=== PATIENT | female | born 1970 | race African-American/Black ===

== ENCOUNTER 2016-11-03 10:23 | Observation (INO) | payer OTHER ==
[~2016-11-03] VITALS: Ht 172.7 cm; Wt 71.0 kg
[2016-11-03] VITALS (9 sets, daily range): BP systolic 121–161; BP diastolic 85–91; PULSE 68–85; RESP 18–20; TEMP 97.9–99.2; O2SAT 96–100
[~2016-11-03 10:23] MED LIST: CETI10 PO; EXCETAB2; EXTR500C OR; IRON325T2 OR; [UNRECOGNIZED DRUG - CODE]
[2016-11-03] MEDS ORDERED: TAMO10TA6 PO (10:37)
[2016-11-03] MEDS ORDERED: HYDR12.56 PO (10:37)
[2016-11-03] MEDS ORDERED: GLIP5TAB8 PO (10:37)
--- NOTE | 2016-11-03 10:57 | PD ---
HPI Chief Complaint: Chest Pain Time Seen by Provider: 10:46 Travel History International Travel<30 days: No Contact w/Intl Traveler<30days: No Traveled to known affect area: No History of Present Illness HPI This 46-year-old female is complaining of pressure behind her sternum. She says she's developed these symptoms this morning while she was watching TV. He stood up but after bed and the pain seems to have subsided somewhat. She had a similar symptom about a year ago. She has no history of heart disease. She does not smoke. She has a history of hypertension and diabetes. Her mother of a stroke at the age of 52. She has had breast cancer twice and has had radiation and tamoxifen treatments. She was not short of breath. There was no radiation of the pain. There is no diaphoresis. She took 2 aspirin at home PFSH Past Medical History Cancer: Yes (RIGHT BREAST-2001 CHEMO & RADIATION [place] ) Cardiovascular Problems: Yes Diabetes: Yes Patient Takes Glucophage: No Endocrine: No Genitourinary: No Hepatitis: No Hiatal Hernia: No Immune Disorder: No Musculoskeletal: No Neurologic: No Psychiatric: No Reproductive: No Respiratory: No Thyroid Disease: No Influenza Vaccination: No ?: Not LMP: TERRY Past Surgical History Abdominal Surgery: No AICD: No Body Medical Devices: ? CLIP LEFT BREAST Cardiac Surgery: No Ear Surgery: No Endocrine Surgery: No Eye Surgery: No Genitourinary Surgery: No Gynecologic Surgery: No Joint Replacement: No Oral Surgery: No Pacemaker: No Thoracic Surgery: Yes (LUMPECTOMY RIGHT BREAST 2002; JORGE ALBERTO BREAST BIOPSIES; ) Other Surgery: Yes (RIGHT LUMPECTOMY--CANCER) Social History Alcohol Use: No Tobacco Use: No Substance Use: No Allergies-Medications (Allergen,Severity, Reaction): Coded Allergies: erythromycin base (Unverified Allergy, Severe, 11/03/16) HIVES hydrocodone (Unverified Allergy, Unknown, HIVES, WHELPS, ITCHING, 11/03/16) Uncoded Allergies: [id number] (Allergy, Unknown, 11/02/02) Reported Meds & Prescriptions Reported Meds & Active Scripts Active Reported Tamoxifen (Tamoxifen Citrate) 10 Mg Tab 10 Mg PO DAILY Glipizide 5 Mg Tab 5 Mg PO DAILY Take 30 minutes before a meal Hydrochlorothiazide 12.5 Mg Tab 12.5 Mg PO DAILY Review of Systems General / Constitutional: No: Fever, Chills Eyes: No: Diploplia, Blurred Vision HENT: No: Headaches, Vertigo Cardiovascular: Positive: Chest Pain or Discomfort, No: Palpitations Respiratory: No: Cough, Shortness of Breath Gastrointestinal: No: Vomiting, Diarrhea Genitourinary: No: Urgency, Frequency Musculoskeletal: No: Myalgias Skin: No Rash, No Itching Neurologic: No: Weakness Endocrine: No: Cold Intolerance Hematologic/Lymphatic: No: Easy Bruising Physical Exam Narrative GENERAL: Female SKIN: Focused skin assessment warm/dry. HEAD: Atraumatic. Normocephalic. EYES: Pupils equal and round. No scleral icterus. No injection or drainage. ENT: No nasal bleeding or discharge. Mucous membranes pink and moist. NECK: Trachea midline. No JVD. CARDIOVASCULAR: Regular rate and rhythm. No murmur appreciated. RESPIRATORY: No accessory muscle use. Clear to auscultation. Breath sounds equal bilaterally. GASTROINTESTINAL: Abdomen soft, non-tender, nondistended. Hepatic and splenic margins not palpable. MUSCULOSKELETAL: No obvious deformities. No clubbing. No cyanosis. No edema. NEUROLOGICAL: Awake and alert. No obvious cranial nerve deficits. Motor grossly within normal limits. Normal speech. PSYCHIATRIC: Appropriate mood and affect; insight and judgment normal. Data Data Last Documented VS Vital Signs Date Time Temp Pulse Resp B/P (MAP) Pulse Ox O2 Delivery O2 Flow Rate FiO2 11/03/16 11:00 99 Room Air 11/03/16 10:41 78 11/03/16 10:30 97.9 18 161/90 (113) Orders Orders Electrocardiogram (11/03/16 10:53) Basic Metabolic Panel (Bmp) (11/03/16 10:53) Complete Blood Count With Diff (11/03/16 10:53) Magnesium (Mg) (11/03/16 10:53) Prothrombin Time / Inr (Pt) (11/03/16 10:53) Act Partial Throm Time (Ptt) (11/03/16 10:53) Troponin I (11/03/16 10:53) Chest, Single Ap (11/03/16 10:53) Ecg Monitoring (11/03/16 10:53) Iv Access Insert/Monitor (11/03/16 10:53) Oximetry (11/03/16 10:53) Oxygen Administration (11/03/16 10:53) Sodium Chloride 0.9% Flush (Ns Flush) (11/03/16 11:00) Labs Laboratory Tests Test 11/03/16 11:11 11/03/16 11:35 White Blood Count 6.2 TH/MM3 Red Blood Count 5.18 MIL/MM3 Hemoglobin 12.9 GM/DL Hematocrit 40.5 % Mean Corpuscular Volume 78.3 FL Mean Corpuscular Hemoglobin 25.0 PG Mean Corpuscular Hemoglobin Concent 31.9 % Red Cell Distribution Width 13.2 % Platelet Count 292 TH/MM3 Mean Platelet Volume 7.9 FL Neutrophils (%) (Auto) 60.6 % Lymphocytes (%) (Auto) 27.9 % Monocytes (%) (Auto) 8.1 % Eosinophils (%) (Auto) 3.0 % Basophils (%) (Auto) 0.4 % Neutrophils # (Auto) 3.8 TH/MM3 Lymphocytes # (Auto) 1.7 TH/MM3 Monocytes # (Auto) 0.5 TH/MM3 Eosinophils # (Auto) 0.2 TH/MM3 Basophils # (Auto) 0.0 TH/MM3 CBC Comment DIFF FINAL Differential Comment Prothrombin Time 10.4 SEC Prothromb Time International Ratio 0.9 RATIO Activated Partial Thromboplast Time 25.4 SEC Blood Urea Nitrogen 19 MG/DL Creatinine 0.88 MG/DL Random Glucose 97 MG/DL Calcium Level 8.9 MG/DL Magnesium Level 2.3 MG/DL Sodium Level 140 MEQ/L Potassium Level 3.4 MEQ/L Chloride Level 103 MEQ/L Carbon Dioxide Level 29.0 MEQ/L Anion Gap 8 MEQ/L Estimat Glomerular Filtration Rate 83 ML/MIN Troponin I LESS THAN 0.02 NG/ML [facility] Medical Decision Making Medical Screen Exam Complete: Yes Emergency Medical Condition: Yes Medical Record Reviewed: Yes Differential Diagnosis Differential includes coronary artery disease, atypical chest pain, GI Narrative Course EKG shows sinus rhythm. Chest x-ray is negative. Initial troponin is normal. I recommended to the patient that she be admitted to the chest pain center for further evaluation and she is agreeable Diagnosis Primary Impression: Chest pain Stefano Mijares MD Nov 03, 2016 10:57
[2016-11-03] MEDS ORDERED: SODIUM CHLORIDE 0.9% FLUSH 10 ML FLUSH IVF PRN (11:00)
[2016-11-03 11:14] LABS: AUTOMATED NEUTROPHIL # 3.8 TH/MM3 (1.8-7.7); BASOPHIL % 0.4 % (0.0-2.0); EOSINOPHIL # 0.2 TH/MM3 (0-0.4); HEMATOCRIT 40.5 % (35.0-46.0); LYMPH % 27.9 % (9.0-44.0); LYMPHOCYTE # 1.7 TH/MM3 (1.0-4.8); MEAN CELL VOLUME 78.3 FL (80.0-100.0); MEAN CORPUSCULAR HGB CONC 31.9 % (32.0-36.0); MONO % 8.1 % (0.0-8.0); NEUT % 60.6 % (16.0-70.0); PLATELET COUNT 292 TH/MM3 (150-450); RED BLOOD COUNT 5.18 MIL/MM3 (4.00-5.30); RED CELL DISTRIBUTION WIDTH 13.2 % (11.6-17.2); WHITE BLOOD COUNT 6.2 TH/MM3 (4.0-11.0)
--- NOTE | 2016-11-03 11:15 | RADRPT ---
EXAM DATE/TIME: 11/03/2016 11:05 [place] COMPARISON: CHEST SINGLE AP, April 07, 2013, 13:06. INDICATIONS : Onset of chest pain today MEDICAL HISTORY : Carcinoma, breast. Diabetes mellitus type II. SURGICAL HISTORY : Mastectomy, bilateral. ENCOUNTER: Initial ACUITY: 1 day PAIN SCORE: 2/10 LOCATION: Bilateral chest FINDINGS: Portable AP view of the chest demonstrates a normal-sized cardiac silhouette. No effusion, consolidat ion, or pneumothorax is visualized. The bones and soft tissues demonstrate no acute abnormality. [place] st implants are present. Clips overlie the right axilla. CONCLUSION: No acute cardiopulmonary abnormality is identified. Harley Murray MD on November 03, 2016 at 11:12 Board Certified Radiologist. This report was verified electronically.
[2016-11-03 11:16] LABS: HEMO FLAGS DIFF FINAL
[2016-11-03 11:32] LABS: APTT (PATIENT) 25.4 SEC (24.3-30.1); INTERNATIONAL NORMALIZED RATIO 0.9 RATIO; PROTHROMBIN TIME - PATIENT 10.4 SEC (9.8-11.6)
[2016-11-03 11:51] LABS: CHLORIDE 103 MEQ/L (98-107); POTASSIUM 3.4 MEQ/L (3.5-5.1); SODIUM (NA) 140 MEQ/L (136-145)
[2016-11-03 11:54] LABS: ANION GAP 8 MEQ/L (5-15)
[2016-11-03 11:55] LABS: BLOOD UREA NITROGEN 19 MG/DL (7-18); MAGNESIUM 2.3 MG/DL (1.5-2.5)
[2016-11-03 11:58] LABS: GLOMERULAR FILTRATION RATE 83 ML/MIN (>89)
[2016-11-03] MEDS ORDERED: SODIUM CHLORIDE 0.9% FLUSH 10 ML FLUSH IV FLUSH PRN (12:45)
[2016-11-03] MEDS ORDERED: NALOXONE HCL 0.4 MG/ML AMP IV PRN (12:45)
[2016-11-03] MEDS ORDERED: ENOXAPARIN SODIUM 40 MG/0.4 ML SYRINGE SQ SCH (13:00)
[2016-11-03] MEDS ORDERED: SENNOSIDES 8.6 MG TAB PO PRN (13:00)
[2016-11-03] MEDS ORDERED: ONDANSETRON HCL 4 MG/2 ML VIAL IVP PRN (13:00)
[2016-11-03] MEDS ORDERED: LACTULOSE SYRUP 20 GM/30 ML CUP PO PRN (13:00)
--- NOTE | 2016-11-03 14:09 | HHI.HP ---
[facility] Service [facility] Primary Care Physician Fredi Ramirez MD Admission Diagnosis CHEST PAIN Diagnoses: Travel History International Travel<30 Days: No Contact w/Intl Traveler <30 Da: No Traveled to Known Affected Are: No History of Present Illness Mrs. Dunne is a 46-year-old female. She has a past medical history of breast cancer. She came into the emergency department today secondary to chest pain this morning. Chest pain was central in her chest and tight and heavy and had a duration of approximately one hour. She's had an episode like this before about 2 years ago. When seen in the ER her pain has subsided. Her first case of breast cancer was at age 32 at which time she had lumpectomy and her second case of breast cancer was at age 42 for which she had bilateral mastectomy and reconstructive surgery. Radiation chemotherapy has been provided to her in the past. Baseline medical conditions are hypertension, diabetes mellitus type 2, in the past history of breast cancer. She has no other surgeries other than the surgeries related to her breast cancer. No other complaints. No nausea. Review of Systems Constitutional: DENIES: Fever, Chills, Change in appetite Endocrine: DENIES: Heat/cold intolerance Eyes: DENIES: Blurred vision, Eye pain Respiratory: DENIES: Cough, Wheezing, Sputum production Cardiovascular: COMPLAINS OF: Chest pain, DENIES: Palpitations, Syncope Gastrointestinal: DENIES: Abdominal pain, Black stools, Bloody stools Musculoskeletal: DENIES: Joint pain, Muscle aches, Stiffness Integumentary: DENIES: Abnormal pigmentation Hematologic/lymphatic: DENIES: Bruising Immunologic/allergic: DENIES: Eczema Neurologic: DENIES: Abnormal gait Psychiatric: DENIES: Anxiety, Confusion, Mood changes Past Family Social History Past Medical History History of breast cancer Hypertension Diabetes mellitus type 2 Past Surgical History Lumpectomy of breast Bilateral mastectomy Breast reconstruction surgery Reported Medications Reported Meds & Active Scripts Active Reported Tamoxifen (Tamoxifen Citrate) 10 Mg Tab 10 Mg PO DAILY Glipizide 5 Mg Tab 5 Mg PO DAILY Take 30 minutes before a meal Hydrochlorothiazide 12.5 Mg Tab 12.5 Mg PO DAILY Allergies: Coded Allergies: erythromycin base (Unverified Allergy, Severe, 11/03/16) HIVES hydrocodone (Unverified Allergy, Unknown, HIVES, WHELPS, ITCHING, 11/03/16) Uncoded Allergies: [id number] (Allergy, Unknown, 11/02/02) Family History Diabetes mellitus and hypertension in father Hypertension mother Social History No smoking, alcohol use, or drug abuse Physical Exam Vital Signs Vital Signs Date Time Temp Pulse Resp B/P (MAP) Pulse Ox O2 Delivery O2 Flow Rate FiO2 11/03/16 12:30 73 18 147/85 (105) 98 11/03/16 11:55 74 20 135/90 (105) 96 11/03/16 11:30 78 20 142/90 (107) 100 11/03/16 11:10 70 18 129/90 (103) 98 11/03/16 11:00 99 Room Air 11/03/16 11:00 99 Room Air 11/03/16 10:41 78 99 Room Air 11/03/16 10:30 97.9 85 18 161/90 (113) 99 Physical Exam GENERAL: NAD, A&Ox3 HEAD: Normocephalic. NECK: Supple, trachea midline. No lymphadenopathy. EYES: No scleral icterus. No injection or drainage. CARDIOVASCULAR: Regular rate and rhythm without murmurs, gallops, or rubs. RESPIRATORY: Breath sounds equal bilaterally. No accessory muscle use. GASTROINTESTINAL: Abdomen soft, non-tender, nondistended. MUSCULOSKELETAL: No cyanosis, or edema. SKIN: Warm and dry. NEURO: No focal neurological deficitis. Laboratory Laboratory Tests Test 11/03/16 11:11 11/03/16 11:35 White Blood Count 6.2 Red Blood Count 5.18 Hemoglobin 12.9 Hematocrit 40.5 Mean Corpuscular Volume 78.3 Mean Corpuscular Hemoglobin 25.0 Mean Corpuscular Hemoglobin Concent 31.9 Red Cell Distribution Width 13.2 Platelet Count 292 Mean Platelet Volume 7.9 Neutrophils (%) (Auto) 60.6 Lymphocytes (%) (Auto) 27.9 Monocytes (%) (Auto) 8.1 Eosinophils (%) (Auto) 3.0 Basophils (%) (Auto) 0.4 Neutrophils # (Auto) 3.8 Lymphocytes # (Auto) 1.7 Monocytes # (Auto) 0.5 Eosinophils # (Auto) 0.2 Basophils # (Auto) 0.0 CBC Comment DIFF FINAL Differential Comment Prothrombin Time 10.4 Prothromb Time International Ratio 0.9 Activated Partial Thromboplast Time 25.4 Blood Urea Nitrogen 19 Creatinine 0.88 Random Glucose 97 Calcium Level 8.9 Magnesium Level 2.3 Sodium Level 140 Potassium Level 3.4 Chloride Level 103 Carbon Dioxide Level 29.0 Anion Gap 8 Estimat Glomerular Filtration Rate 83 Troponin I LESS THAN 0.02 Result Diagram: 11/03/16 1111 11/03/16 1135 Caprini VTE Risk Assessment Caprini VTE Risk Assessment: No/Low Risk (score <= 1) Caprini Risk Assessment Model Point Value = 1 Point Value = 2 Point Value = 3 Point Value = 5 Age 41-60 Minor surgery BMI > 25 kg/m2 Swollen legs Varicose veins or History of unexplained or recurrent spontaneous Oral contraceptives or hormone replacement Sepsis (< 1 month) Serious lung disease, including pneumonia (< 1 month) Abnormal pulmonary function Acute myocardial infarction Congestive heart failure (< 1 month) History of inflammatory bowel disease Medical patient at bed rest Age 61-74 Arthroscopic surgery Major open surgery (> 45 min) Laparoscopic surgery (> 45 min) Malignancy Confined to bed (> 72 hours) Immobilizing plaster cast Central venous access Age >= 75 History of VTE Family history of VTE Factor V Leiden Prothrombin [id number] Lupus anticoagulant Anticardiolipin antibodies Elevated serum homocysteine Heparin-induced thrombocytopenia Other congenital or acquired thrombophilia Stroke (< 1 month) Elective arthroplasty Hip, pelvis, or leg fracture Acute spinal cord injury (< 1 month) Prophylaxis Regimen Total Risk Factor Score Risk Level Prophylaxis Regimen 0-1 Low Early ambulation 2 Moderate Order ONE of the following: *Sequential Compression Device (SCD) *Heparin 5000 units SQ BID 3-4 Higher Order ONE of the following medications: *Heparin 5000 units SQ TID *Enoxaparin/Lovenox 40 mg SQ daily (WT < 150 kg, CrCl > 30 mL/min) *Enoxaparin/Lovenox 30 mg SQ daily (WT < 150 kg, CrCl > 10-29 mL/min) *Enoxaparin/Lovenox 30 mg SQ BID (WT < 150 kg, CrCl > 30 mL/min) AND/OR *Sequential Compression Device (SCD) 5 or more Highest Order ONE of the following medications: *Heparin 5000 units SQ TID (Preferred with Epidurals) *Enoxaparin/Lovenox 40 mg SQ daily (WT < 150 kg, CrCl > 30 mL/min) *Enoxaparin/Lovenox 30 mg SQ daily (WT < 150 kg, CrCl > 10-29 mL/min) *Enoxaparin/Lovenox 30 mg SQ BID (WT < 150 kg, CrCl > 30 mL/min) AND *Sequential Compression Device (SCD) Assessment and Plan Problem List: (1) Chest pain ICD Code: R07.9 - Chest pain, unspecified Status: Acute Assessment and Plan Assessment and plan 46-year-old female admitted secondary to chest pain Chest pain Evaluate for ACS Follow cardiac enzymes Aspirin daily When necessary oxygen When necessary morphine for pain. When necessary nitroglycerin Follow on telemetry Diabetes mellitus type 2 Follow blood sugars Insulin sliding scale Diabetic diet Hypertension Continue baseline treatment Follow blood pressures No plan to change baseline treatment DVT Prophylaxis Pablo Quinones MD Nov 03, 2016 14:09
[2016-11-03] MEDS ORDERED: NITROGLYCERIN 0.4 MG SL 25 TABS/BTL SL PRN (15:00)
[2016-11-03 17:37] LABS: CKMB 4.2 NG/ML (0.5-3.6)
[2016-11-03 19:19] LABS: CREATINE KINASE 2912 U/L (26-192)
[2016-11-03 19:53] LABS: CKMB 3.6 NG/ML (0.5-3.6)
[2016-11-03] MEDS ORDERED: ATORVASTATIN 10 MG TAB PO SCH (21:00)
[2016-11-03] MEDS ORDERED: POTASSIUM CHLORIDE 20 MEQ CONTROLLED RELEASE TAB PO ONE (21:15)
[2016-11-03] MEDS: SODIUM CHLOR 0.9% 1000 ML INJ 1,000 ML IV SCH (21:46)
[2016-11-03] MEDS: SODIUM CHLORIDE 0.9% FLUSH 10 ML FLUSH IV FLUSH SCH (21:47)
[2016-11-04] VITALS: BP 118/76; PULSE 66; RESP 20; TEMP 97.2; O2SAT 96
[2016-11-04 04:00] VITALS: BP 123/95; PULSE 68; RESP 20; TEMP 96.9; O2SAT 97
[2016-11-04] MEDS: SODIUM CHLOR 0.9% 1000 ML INJ 1,000 ML IV SCH (04:04)
[2016-11-04 08:00] VITALS: BP 122/84; PULSE 69; RESP 18; TEMP 96.3; O2SAT 97
[2016-11-04 08:05] LABS: AUTOMATED NEUTROPHIL # 2.5 TH/MM3 (1.8-7.7); BASOPHIL % 0.6 % (0.0-2.0); EOSINOPHIL # 0.2 TH/MM3 (0-0.4); HEMATOCRIT 37.8 % (35.0-46.0); HEMO FLAGS DIFF FINAL; LYMPH % 35.9 % (9.0-44.0); LYMPHOCYTE # 1.9 TH/MM3 (1.0-4.8); MEAN CELL VOLUME 79.3 FL (80.0-100.0); MEAN CORPUSCULAR HEMOGLOBIN 25.6 PG (27.0-34.0); MEAN CORPUSCULAR HGB CONC 32.3 % (32.0-36.0); MONO % 10.8 % (0.0-8.0); NEUT % 49.7 % (16.0-70.0); PLATELET COUNT 277 TH/MM3 (150-450); RED BLOOD COUNT 4.77 MIL/MM3 (4.00-5.30); RED CELL DISTRIBUTION WIDTH 13.1 % (11.6-17.2); WHITE BLOOD COUNT 5.2 TH/MM3 (4.0-11.0)
[2016-11-04] MEDS ORDERED: SODIUM CHLOR 0.9% 1000 ML INJ 1,000 ML IV SCH (08:15)
[2016-11-04] MEDS: SODIUM CHLORIDE 0.9% FLUSH 10 ML FLUSH IV FLUSH SCH (08:32)
[2016-11-04 08:42] LABS: ALKALINE PHOSPHATASE 51 U/L (45-117); ALT (GPT) 31 U/L (10-53); ANION GAP 7 MEQ/L (5-15); AST (GOT) 34 U/L (15-37); BICARBONATE 28.4 MEQ/L (21.0-32.0); BLOOD UREA NITROGEN 15 MG/DL (7-18); CHLORIDE 105 MEQ/L (98-107); GLOMERULAR FILTRATION RATE 89 ML/MIN (>89); POTASSIUM 4.3 MEQ/L (3.5-5.1); SODIUM (NA) 140 MEQ/L (136-145); TOTAL BILIRUBIN ADULT 0.6 MG/DL (0.2-1.0)
--- NOTE | 2016-11-04 09:26 | EKG ---
Date Performed: 11/03/2016 Time Performed: 22:32:25 PTAGE: 46 years EKG: Sinus rhythm POSSIBLE LEFT ATRIAL ENLARGEMENT SEPTAL MYOCARDIAL INFARCTION Compared to prior tracing no significa nt change ABNORMAL ECG PREVIOUS TRACING : 11/03/2016 17.48 DOCTOR: Josiah Lei Interpretating Date/Time 11/04/2016 09:25:36
--- NOTE | 2016-11-04 09:27 | EKG ---
Date Performed: 11/03/2016 Time Performed: 17:48:39 PTAGE: 46 years EKG: Sinus rhythm NONSPECIFIC T-WAVE ABNORMALITY Compared to prior tracing no significant change BORDERLINE ECG PREVIOUS TRACING : 11/03/2016 10.34 DOCTOR: Josiah Lei Interpretating Date/Time 11/04/2016 09:26:06
--- NOTE | 2016-11-04 09:27 | EKG ---
Date Performed: 11/03/2016 Time Performed: 10:34:24 PTAGE: 46 years EKG: Sinus rhythm NONSPECIFIC T-WAVE ABNORMALITY Compared to prior tracing no significant change BORDERLINE ECG PREVIOUS TRACING : 04/02/13 @ 0929 DOCTOR: Josiah Lei Interpretating Date/Time 11/04/2016 09:25:57
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
[2016-11-04 12:48] LABS: HDL CHOLESTEROL 53.2 MG/DL (40.0-60.0)
[2016-11-05] MEDS ORDERED: ASPIRIN 325 MG TAB PO SCH (09:00)
== END 2016-11-04 12:05 | disposition home or self-care (01) ==
LOC: PHED 10:23 → PHEDA 12:36 → PH3B 14:19
PROVIDERS: ADMIT Hospitalist; ATTEND Hospitalist
DX: R07.9 Chest pain, unspecified (principal); R94.31 Abnormal electrocardiogram [ECG] [EKG]; M62.82 Rhabdomyolysis; I10 Essential (primary) hypertension; E11.9 Type 2 diabetes mellitus without complications; C50.919 Malignant neoplasm of unspecified site of unspecified female breast; Z90.13 Acquired absence of bilateral breasts and nipples
CPT/HCPCS: 71010; 80048; 80053; 80061; 82550; 82552; 83735; 84484; 85025; 85610; 85730; 93005; 96360; 96361; 99285; G0378; J7030